=== PATIENT | female | born 1945 | race Caucasian/White ===

== ENCOUNTER 2016-11-15 11:57 | Inpatient (IN) | payer MEDICARE, OTHER ==
[2016-11-11 13:36] LABS: BASOPHILS 0.2 %; BASOPHILS ABSOLUTE 0.02 10/3/uL (0.0-0.16); EOSINOPHILS 2.4 %; EOSINOPHILS ABSOLUTE 0.29 10/3/uL (0.0-0.53); HEMATOCRIT 36.8 % (36.0-48.0); HEMOGLOBIN 11.9 g/dL (12.0-16.0); IMMATURE GRANULOCYTES 0.5 %; IMMATURE GRANULOCYTES ABSOLUTE 0.06 10/3/uL (0.0-0.11); LYMPHOCYTES 22.6 %; LYMPHOCYTES ABSOLUTE 2.68 10/3/uL (0.67-4.30); MANUAL DIFF NO %; MEAN CORPUS HGB CONC 32.3 g/dL (32.0-36.0); MEAN CORPUSCULAR HEMOGLOB 29.2 pg (26.0-34.0); MEAN CORPUSCULAR VOLUME 90.2 fL (80-100); MEAN PLATELET VOLUME 9.6 fL (9.2-13.0); MONOCYTES 6.4 %; MONOCYTES ABSOLUTE 0.76 10/3/uL (0.21-1.20); NEUTROPHILS 67.9 %; NEUTROPHILS ABSOLUTE 8.03 10/3/uL (2.02-8.40); PLATELET COUNT 411 10/3/uL (150-400); RBC DISTRIBUTION WIDTH 13.5 % (12.0-16.0); RED CELL COUNT 4.08 10/6/uL (4.0-5.6); WHITE BLOOD CELLS 11.8 10/3/uL (4.5-10.5)
[2016-11-11 13:46] LABS: PARTIAL THROMBO TIME 29.5 SEC (22.5-37.2)
[2016-11-11 13:50] LABS: BUN (BLOOD UREA NITROGEN) 20 MG/DL (6-23); CALCIUM, SERUM 9.1 MG/DL (8.5-10.4); CHLORIDE, SERUM 105 MMOL/L (96-112); CO2 (CARBON DIOXIDE) 27 MMOL/L (24-34); CREATININE 1.04 MG/DL (0.55-1.02); GFR AFRICAN AMERICAN 63 ML/MIN (>=60); GFR NON AFRICAN AMERICAN 55 ML/MIN (>=60); GLUCOSE, SERUM 95 MG/DL (60-99); INTERNATIONAL NORMAL RATI 1.1 UNITS (-); POTASSIUM, SERUM 4.5 MMOL/L (3.5-5.3); PROTIME (NOT ORD) 14.2 SEC (12.0-14.5); SODIUM, SERUM 139 MMOL/L (135-148)
--- NOTE | ~2016-11-15 | OP ---
Record Of Operation [facility] [address] [place]. [address] NAME: KENNETH ROGERS : 47 STATUS : ADM IN PAT#: [id number] AGE: 71 ADM/REG DATE : 11/15/16 MR#: [id number] REPORT SERV DATE: 11/17/16 DICTATED BY: ANEL CHENG DATE: 11/16/16 REPORT STATUS : Draft TRANSCRIBED BY: MODL DATE: 11/16/16 DATE OF PROCEDURE: 11/16/2016 PREOPERATIVE DIAGNOSES: Left staghorn stone, history of urinary tract infection. POSTOPERATIVE DIAGNOSES: Left staghorn stone, history of urinary tract infection. PROCEDURE PERFORMED: Left PCNL. SURGEON: Anel Cheng M.D. ANESTHESIA: General. ESTIMATED BLOOD LOSS: About 300 mL. INDICATIONS: This is a 71-year-old white female with a very large staghorn stone. She had a history of associated UTI and hydronephrosis. She has undergone ureteral stenting and has completed an appropriate round of antibiotic treatment and we are now planning definitive stone treatment with PCNL. The procedure as well as risks of infection, bleeding, failure, need for further surgery, etc. were reviewed. PROCEDURE IN DETAIL: The patient was taken to the operating room and underwent a general anesthetic. She was placed in a prone position on the table, and the skin of her back and flank were sterilely prepped and draped. She had a Trammell catheter placed preoperatively. She had two nephrostomy tubes. I selected the one using a lower pole access and injected contrast through this outlining the collecting system around the stone. I then advanced a 0.038 guidewire down into the bladder again under fluoroscopic guidance. The nephrostomy catheter was then removed. An Arrow sheath was advanced over the guidewire down into the distal ureter and a second guidewire was placed through the sheath such that two guidewires were in place with distal end in the bladder. The Arrow sheath was then removed. A short skin incision was made and the balloon dilator was advanced over the guidewire into the kidney and inflated such that we were able to dilate the nephrostomy tract into the lower pole of the kidney. The 32-Anguillan clear access sheath was advanced easily over the balloon into the collecting system of the kidney and the balloon dilatation apparatus was removed. The rigid nephroscope was then advanced into the kidney under direct vision. There was a large stone that occupied virtually the entire collecting system. The ultrasonic device was used to fragment the stone and suction was used to remove the fragments. This was a very laborious process. After quite a while, we had essentially fragmented and removed the all visible portions of the stone. X-ray revealed residual stone pieces in an upper pole and lower pole calyx. The flexible cystoscope was used, was then advanced into the kidney and we were able to advance it into the correct lower and upper pole calyces containing the residual stones. The rigid nephroscope was then reinserted and I was able to advance it in first into the lower pole calyx where a relatively large stone was encountered and this was fragmented and removed using the ultrasound device. With a bit more difficulty, we were able to advance the scope into a large hydrocalyx in the upper pole of the kidney. This too contained an even larger stone and we were able to successfully fragmented with the Record Of Operation [address] [place]. [address] NAME: KENNETH ROGERS : 47 STATUS : ADM IN PAT#: [id number] AGE: 71 ADM/REG DATE : 11/15/16 MR#: [id number] REPORT SERV DATE: 11/17/16 DICTATED BY: ANEL CHENG DATE: 11/16/16 REPORT STATUS : Draft TRANSCRIBED BY: MORIAH DATE: 11/16/16 ultrasound device. Reinspection of the calyx did not reveal significant stone material as best we could tell. Brief reinspection of the collecting system of the kidney showed no significant retained stones. The UPJ region looked free of stones as well. The nephroscope was then removed from the kidney and a 20-Anguillan Kaw tip catheter was placed over through the access sheath and over one of the guidewires and advanced into the collecting system of the kidney. A nephrogram was obtained and document the position of the catheter in the renal collecting system and then 2-3 mL of sterile water was inflated in the balloon which was located in the renal pelvis. I should mention that she had had a ureteral stent, which had already been placed prior to the surgery and the upper end of the stent was coiled in a mid upper pole calyx, the distal end of the stent was coiled in the bladder, this was simply left in place. The second small nephrostomy tube access was removed. The second safety guidewire was then removed as well. The nephrostomy tube was left to gravity drainage and was secured to the skin with a 2-0 silk stitch. Sterile dressing was applied. The patient was then taken to recovery in stable condition. DS/MODL Anel Cheng M.D. / [id number] CC: Ky Chatterjee M.D.
--- NOTE | ~2016-11-15 | DS ---
Discharge Summary [facility] [address] [place]. [address] NAME: KENNETH ROGERS : 47 STATUS : DIS IN PAT#: [id number] AGE: 71 ADM/REG DATE : 11/15/16 MR#: [id number] REPORT SERV DATE: 12/01/16 DICTATED BY: ANEL CHENG DATE: 11/30/16 REPORT STATUS : Draft TRANSCRIBED BY: MORIAH DATE: 11/30/16 Data Collection from hospitalization DISCHARGE DIAGNOSIS(ES): 1. Large left staghorn stone status post left percutaneous nephrolithotomy. 2. History of urinary tract infection. 3. Depression. 4. Arthritis. 5. Hyperlipidemia. 6. Bursitis. 7. Gastroesophageal reflux disease. 8. History of migraines. CONSULTATIONS: None. PROCEDURES PERFORMED: 1. Left percutaneous nephrolithotomy, 11/16/2016; PCN access, 11/15/2016. 2. CT scan of the abdomen and pelvis without contrast, 11/18/2016. MEDICATIONS: Tylenol 650 mg every four hours as needed, vitamin B one tablet daily, Colace 100 mg twice a day, ferrous sulfate 325 mg twice a day, Prozac 40 mg every morning, hormone cream topically daily, Levaquin 750 mg daily, Claritin 10 mg every morning, probiotic one capsule every morning, Percocet 5/325 one to two tablets every four hours as needed, Pyridium mg as instructed, Zocor 20 mg at bedtime. CONDITION AT DISCHARGE: Stable. DISPOSITION: The patient was discharged home on a regular diet with activities as instructed. She would follow up with me, 12/05/2016. HOSPITAL COURSE: This is a 71-year-old female who I had seen recently in the office for a staghorn left renal calculus. She presented with left flank pain, urinary infection, and left hydronephrosis secondary to a very large staghorn stone located within the left kidney. She has already undergone ureteral stenting and has had significant improvement in her left flank pain. We are now planning definitive treatment of the stone by PCNL. The patient said that she generally voids with a good urinary stream. There had been no hesitancy or postvoid dribbling. She denies a history of chronic urinary tract infections prior to her recent past. She has not been running fevers at home. She was admitted to the hospital at this time for further evaluation and treatment. Upon admission, her white blood cell count was 11.8. Urine culture was negative. Creatinine level was 1.04. She underwent PCN access for large left staghorn calculus. The following day, she was taken to the operating room where she underwent the above-mentioned procedure. She tolerated this well and there were no complications. On postop day #1, she had no new complaints. She did have a cough. Her abdomen was benign. Urine was very light pink. She was going to be transfused one unit of packed red blood cells. White count was 13.3. On the , she was still weak. She was tolerating her diet. She had not had a bowel movement. The stent and PCN were in good position. A CT scan of the abdomen and Discharge Summary [address] [address] NAME: KENNETH ROGERS : 47 STATUS : DIS IN PAT#: [id number] AGE: 71 ADM/REG DATE : 11/15/16 MR#: [id number] REPORT SERV DATE: 12/01/16 DICTATED BY: ANEL CHENG DATE: 11/30/16 REPORT STATUS : Draft TRANSCRIBED BY: MORIAH DATE: 11/30/16 pelvis without contrast was performed. PCN was going to be clamped. On 11/19/2016, she was afebrile. She looked good. Postop anemia was improving. She was doing well clinically. Nephrostomy was discontinued. The Trammell catheter was removed. The following day, she had leaked quite a bit from the N-tube site. This was a bandage to create resistance to drainage. CT scan had revealed the stent to be in good position. Trammell catheter was going to be replaced. Discharge planning was performed. On 11/21/2016, she had no new complaints. She did have a bowel movement. Her T-max was 99.5. Discharge instructions were given. Due to her improved and stable condition, she was discharged home with the above-stated instructions. Information collected by: Dori Mehta I submit the above information as my discharge summary. TG/MODL Anel Cheng M.D. / [id number] CC: Ky Chatterjee M.D.
--- NOTE | ~2016-11-15 | HP ---
History And Physical [place] [id number] [facility] [place]. [address] NAME: KENNETH ROGERS : 47 STATUS : ADM IN [facility]#: [id number] AGE: 71 ADM/REG DATE : 11/15/16 MR#: [id number] REPORT SERV DATE: 11/16/16 DICTATED BY: ANEL CHENG DATE: 11/16/16 REPORT STATUS : Draft TRANSCRIBED BY: MODJoceline DATE: 11/16/16 DATE OF ADMISSION: 11/15/2016 HISTORY: This is a 71-year-old white female, who I have recently seen in the office for a staghorn left renal calculus. She presented with left flank pain, urinary infection, and left hydronephrosis secondary to a very large staghorn stone located within the left kidney. She has already undergone ureteral stenting and has had significant improvement in her left flank pain. We are now planning definitive treatment of the stone by PCNL. She says that generally speaking she voids with a good urinary stream. No hesitancy or postvoid dribbling. She denies a history of chronic UTIs prior to her recent past. She has not been running any fevers at home. MEDICAL HISTORY: Includes arthritis, hyperlipidemia, bursitis, and a history of depression. SURGICAL HISTORY: Includes bilateral foot surgery and hand surgery. SOCIAL HISTORY: She is . She has two children. She is a social drinker and she does not smoke. MEDICATIONS: Tylenol, vitamin B, Prozac, hormones, Claritin, probiotic, Pyridium, and Zocor. ALLERGIES: SHE IS ALLERGIC TO DOXYCYCLINE, ERYTHROMYCIN, PENICILLINS, AND TETRACYCLINES. PHYSICAL EXAMINATION: GENERAL: She is a very pleasant white female, in no distress. Alert and oriented. She is awake, alert, and conversive. HEENT: Pupils equal, round, and reactive. Extraocular movements intact. Oropharynx clear. NECK: Supple. LUNGS: Clear. HEART: Regular. ABDOMEN: Soft, nontender, and nondistended. No mass. BACK: Has two left-sided nephrostomy tubes placed. EXTREMITIES: No cyanosis or edema. LAB VALUES: White count 11.8, H and H 11.9 and 36, platelet count 411. PT/PTT 14 and 29.5. BUN and creatinine are 20 and 1.04 respectively. Potassium 4.5. Urine culture is negative. IMPRESSION: 1. Left staghorn stone. 2. History of urinary tract infection. 3. Status post left ureteral stent placement. PLAN: We will proceed with PCNL procedure and risks of infection, bleeding, failure, need for further surgery, etc, were reviewed. History And Physical [address] [place] [address] NAME: KENNETH ROGERS : 47 STATUS : ADM IN [facility]#: [id number] AGE: 71 ADM/REG DATE : 11/15/16 MR#: [id number] REPORT SERV DATE: 11/16/16 DICTATED BY: ANEL CHENG DATE: 11/16/16 REPORT STATUS : Draft TRANSCRIBED BY: MORIAH DATE: 11/16/16 BRANDON/MORIAH Anel Cheng M.D. / [id number] CC: Ky Chatterjee M.D.
[~2016-11-15 11:57] MED LIST: ADVIL PO; CLARIT10 PO; FIBERCON PO; HRT BASE TOP; PRILOSEC OTC20 MG PO; PROBIOTIC PO; PROZAC40 MG PO; PYR200 PO; T PO; ULTRAM50 PO; VITAMIN B PO; ZOCOR20 PO
[2016-11-15 12:30] LABS: BASOPHILS 0.3 %; BASOPHILS ABSOLUTE 0.02 10/3/uL (0.0-0.16); EOSINOPHILS 4.4 %; EOSINOPHILS ABSOLUTE 0.35 10/3/uL (0.0-0.53); HEMATOCRIT 36.7 % (36.0-48.0); IMMATURE GRANULOCYTES 0.3 %; IMMATURE GRANULOCYTES ABSOLUTE 0.02 10/3/uL (0.0-0.11); LYMPHOCYTES 27.9 %; LYMPHOCYTES ABSOLUTE 2.21 10/3/uL (0.67-4.30); MEAN CORPUS HGB CONC 32.7 g/dL (32.0-36.0); MEAN CORPUSCULAR HEMOGLOB 29.3 pg (26.0-34.0); MEAN CORPUSCULAR VOLUME 89.7 fL (80-100); MEAN PLATELET VOLUME 9.3 fL (9.2-13.0); MONOCYTES 9.7 %; MONOCYTES ABSOLUTE 0.77 10/3/uL (0.21-1.20); NEUTROPHILS 57.4 %; NEUTROPHILS ABSOLUTE 4.55 10/3/uL (2.02-8.40); PLATELET COUNT 344 10/3/uL (150-400); RBC DISTRIBUTION WIDTH 13.9 % (12.0-16.0); RED CELL COUNT 4.09 10/6/uL (4.0-5.6); WHITE BLOOD CELLS 7.9 10/3/uL (4.5-10.5)
[2016-11-15 12:31] LABS: MANUAL DIFF NO %
[2016-11-15 12:37] LABS: INTERNATIONAL NORMAL RATI 1.1 UNITS (-); PARTIAL THROMBO TIME 29.8 SEC (22.5-37.2); PROTIME (NOT ORD) 13.8 SEC (12.0-14.5)
[2016-11-15 12:44] LABS: BUN (BLOOD UREA NITROGEN) 17 MG/DL (6-23); CALCIUM, SERUM 9.1 MG/DL (8.5-10.4); CHLORIDE, SERUM 110 MMOL/L (96-112); CO2 (CARBON DIOXIDE) 24 MMOL/L (24-34); CREATININE 0.93 MG/DL (0.55-1.02); GFR AFRICAN AMERICAN 72 ML/MIN (>=60); GFR NON AFRICAN AMERICAN 62 ML/MIN (>=60); GLUCOSE, SERUM 109 MG/DL (60-99); POTASSIUM, SERUM 4.2 MMOL/L (3.5-5.3); SODIUM, SERUM 144 MMOL/L (135-148)
[2016-11-16 15:41] LABS: BASOPHILS 0.1 %; BASOPHILS ABSOLUTE 0.02 10/3/uL (0.0-0.16); EOSINOPHILS 1.4 %; HEMOGLOBIN 10.7 g/dL (12.0-16.0); IMMATURE GRANULOCYTES 0.3 %; IMMATURE GRANULOCYTES ABSOLUTE 0.04 10/3/uL (0.0-0.11); LYMPHOCYTES 17.5 %; LYMPHOCYTES ABSOLUTE 2.43 10/3/uL (0.67-4.30); MEAN CORPUS HGB CONC 32.5 g/dL (32.0-36.0); MEAN CORPUSCULAR HEMOGLOB 29.6 pg (26.0-34.0); MEAN CORPUSCULAR VOLUME 91.1 fL (80-100); MEAN PLATELET VOLUME 9.8 fL (9.2-13.0); MONOCYTES 9.8 %; MONOCYTES ABSOLUTE 1.37 10/3/uL (0.21-1.20); NEUTROPHILS 70.9 %; NEUTROPHILS ABSOLUTE 9.85 10/3/uL (2.02-8.40); PLATELET COUNT 317 10/3/uL (150-400); RED CELL COUNT 3.61 10/6/uL (4.0-5.6)
[2016-11-16 15:42] LABS: HEMATOCRIT 32.9 % (36.0-48.0); MANUAL DIFF NO %; WHITE BLOOD CELLS 13.9 10/3/uL (4.5-10.5)
[2016-11-16 18:08] LABS: HEMOGLOBIN 9.1 g/dL (12.0-16.0)
[2016-11-16 18:12] LABS: HEMATOCRIT 27.8 % (36.0-48.0)
[2016-11-16 18:20] LABS: CHLORIDE, SERUM 106 MMOL/L (96-112); CO2 (CARBON DIOXIDE) 24 MMOL/L (24-34); CREATININE 0.73 MG/DL (0.55-1.02); GFR AFRICAN AMERICAN 97 ML/MIN (>=60); GFR NON AFRICAN AMERICAN 83 ML/MIN (>=60); POTASSIUM, SERUM 3.9 MMOL/L (3.5-5.3); SODIUM, SERUM 140 MMOL/L (135-148)
[2016-11-16 18:22] LABS: BUN (BLOOD UREA NITROGEN) 9 MG/DL (6-23); CALCIUM, SERUM 7.7 MG/DL (8.5-10.4); GLUCOSE, SERUM 175 MG/DL (60-99)
[2016-11-16 22:53] LABS: HEMATOCRIT 25.9 % (36.0-48.0); HEMOGLOBIN 8.5 g/dL (12.0-16.0)
[2016-11-17 05:40] LABS: BASOPHILS 0 %; EOSINOPHILS 0 %; HEMOGLOBIN 7.5 g/dL (12.0-16.0); IMMATURE GRANULOCYTES 0.3 %; IMMATURE GRANULOCYTES ABSOLUTE 0.04 10/3/uL (0.0-0.11); LYMPHOCYTES 8.2 %; LYMPHOCYTES ABSOLUTE 1.08 10/3/uL (0.67-4.30); MEAN CORPUS HGB CONC 32.2 g/dL (32.0-36.0); MEAN CORPUSCULAR HEMOGLOB 29.4 pg (26.0-34.0); MEAN CORPUSCULAR VOLUME 91.4 fL (80-100); MEAN PLATELET VOLUME 9.1 fL (9.2-13.0); MONOCYTES 8.8 %; MONOCYTES ABSOLUTE 1.17 10/3/uL (0.21-1.20); NEUTROPHILS 82.7 %; NEUTROPHILS ABSOLUTE 10.96 10/3/uL (2.02-8.40); PLATELET COUNT 257 10/3/uL (150-400); WHITE BLOOD CELLS 13.3 10/3/uL (4.5-10.5)
[2016-11-17 05:43] LABS: HEMATOCRIT 23.3 % (36.0-48.0); MANUAL DIFF NO %; RED CELL COUNT 2.55 10/6/uL (4.0-5.6)
[2016-11-17 05:53] LABS: BUN (BLOOD UREA NITROGEN) 6 MG/DL (6-23); CALCIUM, SERUM 8.1 MG/DL (8.5-10.4); CHLORIDE, SERUM 107 MMOL/L (96-112); CO2 (CARBON DIOXIDE) 25 MMOL/L (24-34); CREATININE 0.68 MG/DL (0.55-1.02); GFR AFRICAN AMERICAN 103 ML/MIN (>=60); GFR NON AFRICAN AMERICAN 89 ML/MIN (>=60); GLUCOSE, SERUM 158 MG/DL (60-99); POTASSIUM, SERUM 4.1 MMOL/L (3.5-5.3); SODIUM, SERUM 141 MMOL/L (135-148)
[2016-11-17 17:42] LABS: HEMATOCRIT 24.9 % (36.0-48.0); HEMOGLOBIN 8.2 g/dL (12.0-16.0)
[2016-11-18 07:23] LABS: BASOPHILS 0.2 %; BASOPHILS ABSOLUTE 0.02 10/3/uL (0.0-0.16); EOSINOPHILS 4.3 %; EOSINOPHILS ABSOLUTE 0.44 10/3/uL (0.0-0.53); HEMATOCRIT 22.8 % (36.0-48.0); HEMOGLOBIN 7.3 g/dL (12.0-16.0); IMMATURE GRANULOCYTES 0.5 %; IMMATURE GRANULOCYTES ABSOLUTE 0.05 10/3/uL (0.0-0.11); LYMPHOCYTES 23.8 %; LYMPHOCYTES ABSOLUTE 2.45 10/3/uL (0.67-4.30); MEAN CORPUSCULAR HEMOGLOB 28.6 pg (26.0-34.0); MEAN CORPUSCULAR VOLUME 89.4 fL (80-100); MEAN PLATELET VOLUME 9.8 fL (9.2-13.0); MONOCYTES ABSOLUTE 1.03 10/3/uL (0.21-1.20); NEUTROPHILS 61.2 %; PLATELET COUNT 232 10/3/uL (150-400); RBC DISTRIBUTION WIDTH 14.6 % (12.0-16.0); RED CELL COUNT 2.55 10/6/uL (4.0-5.6); WHITE BLOOD CELLS 10.3 10/3/uL (4.5-10.5)
[2016-11-18 07:24] LABS: BUN (BLOOD UREA NITROGEN) 7 MG/DL (6-23); CALCIUM, SERUM 7.6 MG/DL (8.5-10.4); CHLORIDE, SERUM 110 MMOL/L (96-112); CO2 (CARBON DIOXIDE) 23 MMOL/L (24-34); CREATININE 0.65 MG/DL (0.55-1.02); GFR AFRICAN AMERICAN 104 ML/MIN (>=60); GFR NON AFRICAN AMERICAN 90 ML/MIN (>=60); GLUCOSE, SERUM 112 MG/DL (60-99); POTASSIUM, SERUM 3.9 MMOL/L (3.5-5.3); SODIUM, SERUM 142 MMOL/L (135-148)
[2016-11-18 07:26] LABS: MANUAL DIFF NO %
[2016-11-18 20:06] LABS: HEMATOCRIT 26.6 % (36.0-48.0); HEMOGLOBIN 8.9 g/dL (12.0-16.0)
[2016-11-19 06:27] LABS: HEMOGLOBIN 9.5 g/dL (12.0-16.0)
[2016-11-19] MEDS ORDERED: PYR200 PO (12:14)
[2016-11-19] MEDS ORDERED: DSS PO (12:15)
[2016-11-19] MEDS ORDERED: LEVAQUIN750 MG PO (12:15)
[2016-11-19] MEDS ORDERED: FERROUS SULF325 M1 PO (12:15)
[2016-11-19] MEDS ORDERED: PCET PO (12:16)
[2016-11-22 01:19] LABS: SOURCE OF STONE Left Kidney (()); STONE COMPOSITION TWO DNR (())
== END 2016-11-21 16:35 | disposition home or self-care (01) | DRG 660 ==
LOC: CSSUOP 11:57 → RADHOLD 12:00 → 5SO 17:49
PROVIDERS: Urology
PROC: 0T9130Z Drainage of Left Kidney with Drainage Device, Percutaneous Approach (ICD-10-PCS; 2016-11-15)
PROC: 0T748ZZ Dilation of Left Kidney Pelvis, Via Natural or Artificial Opening Endoscopic (ICD-10-PCS; 2016-11-16)
PROC: 30233N1 Transfusion of Nonautologous Red Blood Cells into Peripheral Vein, Percutaneous Approach (ICD-10-PCS; principal; 2016-11-17)
DX: N13.2 Hydronephrosis with renal and ureteral calculous obstruction (principal); D62 Acute posthemorrhagic anemia; F32.9 Major depressive disorder, single episode, unspecified; K21.9 Gastro-esophageal reflux disease without esophagitis; Z88.1 Allergy status to other antibiotic agents; Z88.0 Allergy status to penicillin; Z79.899 Other long term (current) drug therapy; Z87.440 Personal history of urinary (tract) infections; G43.909 Migraine, unspecified, not intractable, without status migrainosus
CPT/HCPCS: 36415; 50433; 74000; 74176; 80048; 82330; 82365; 85014; 85018; 85025; 85610; 85730; 86850; 86900; 86901; 86920; 93005; A9270-GY; C1726; C1769; C1894; C2625; J1170; J1956; J2250; J2370; J2405; J2710; J3010; P9016; P9040; P9045; Q9967